=== PATIENT | female | born 1980 | race Two or more races ===

== ENCOUNTER 2019-06-26 00:16 | Inpatient (IN) | payer MEDICAID ==
[~2019-06-26] VITALS: Ht 154.9 cm; Wt 84.8 kg
[2019-06-26] VITALS (15 sets, daily range): BP systolic 92–119; BP diastolic 47–59
[2019-06-26 01:10] LABS: BASOPHIL % 1.7 % (0-2); RED CELL DISTRIBUTION WIDTH 12.1 % (11.5-14.5)
[2019-06-26 01:23] LABS: PLATELET COUNT 301 x10^3mcL (130-400)
[2019-06-26 01:27] LABS: CALCIUM 8.2 mg/dL (8.5-10.1); CARBON DIOXIDE 26.2 mmol/L (21-32); CHLORIDE SERUM 113 mmol/L (98-107); CREATININE SERUM 0.7 mg/dL (0.6-1.0); GFR1 > 60 mL/min; GLUCOSE SERUM 109 mg/dL (74-106); POTASSIUM SERUM 3.7 mmol/L (3.5-5.1); SODIUM SERUM 149 mmol/L (136-145)
[2019-06-26 01:33] LABS: ALBUMIN 3.7 g/dL (3.4-5.0); ALKALINE PHOSPHATASE 72 U/L (46-116); ALT/SGPT 39 U/L (14-59); AMYLASE 86 U/L (25-115); AST/SGOT 21 U/L (15-37); BILIRUBIN TOTAL 0.12 mg/dL (0.20-1.00); LIPASE 168 IU/L (73-393); TOTAL PROTEIN, SERUM 7.3 g/dL (6.4-8.2)
[2019-06-26 07:23] LABS: CHOLESTEROL/HDL RATIO 3.8; T3 TOTAL 1.54 ng/mL
[2019-06-26 07:43] LABS: FREE T4 1.31 ng/dL (0.76-1.46); FREE THYROXINE INDEX 3.6 ug/dL (1.4-4.5); T4(THYROXINE) 9.1 ug/dL (4.7-13.3)
[2019-06-26 08:06] LABS: AMPHETAMINE QUAL UR NONE DETECTED (See below)
[2019-06-26 08:19] LABS: UA SPECIFIC GRAVITY <=1.005 (1.005-1.035); microscopic required? YES; urine erythrocyte TRACE (NEGATIVE)
[2019-06-27] VITALS (16 sets, daily range): BP systolic 96–120; BP diastolic 48–72
[2019-06-27 05:11] LABS: CARBON DIOXIDE 26.8 mmol/L (21-32); CHLORIDE SERUM 108 mmol/L (98-107); CREATININE SERUM 0.6 mg/dL (0.6-1.0); GFR1 > 60 mL/min; GLUCOSE SERUM 95 mg/dL (74-106); MAGNESIUM 1.2 mg/dL (1.8-2.4); PHOSPHOROUS 3.7 mg/dL (2.5-4.9); SODIUM SERUM 144 mmol/L (136-145)
[2019-06-27 05:29] LABS: POTASSIUM SERUM 2.8 mmol/L (3.5-5.1)
[2019-06-27 05:40] LABS: BASOPHIL % 0.5 % (0-2); PLATELET COUNT 221 x10^3mcL (130-400); RED CELL DISTRIBUTION WIDTH 13.2 % (11.5-14.5)
[2019-06-28] VITALS (11 sets, daily range): BP systolic 91–120; BP diastolic 38–64; Ht 154.9 cm; Wt 84.8 kg
[2019-06-28 05:37] LABS: CALCIUM 7.8 mg/dL (8.5-10.1); CARBON DIOXIDE 24.5 mmol/L (21-32); CHLORIDE SERUM 107 mmol/L (98-107); CREATININE SERUM 0.5 mg/dL (0.6-1.0); GFR1 > 60 mL/min; GLUCOSE SERUM 130 mg/dL (74-106); MAGNESIUM 2.3 mg/dL (1.8-2.4); PHOSPHOROUS 2.7 mg/dL (2.5-4.9); POTASSIUM SERUM 3.2 mmol/L (3.5-5.1); SODIUM SERUM 140 mmol/L (136-145)
[2019-06-28 05:42] LABS: BASOPHIL % 0.3 % (0-2); PLATELET COUNT 197 x10^3mcL (130-400); RED CELL DISTRIBUTION WIDTH 12.8 % (11.5-14.5)
[2019-06-29 06:29] VITALS: BP 93/52
[2019-06-29 06:34] LABS: BASOPHIL % 0.1 % (0-2); PLATELET COUNT 235 x10^3mcL (130-400); RED CELL DISTRIBUTION WIDTH 12.8 % (11.5-14.5)
[2019-06-29 06:45] LABS: CALCIUM 7.9 mg/dL (8.5-10.1); CARBON DIOXIDE 25.6 mmol/L (21-32); CHLORIDE SERUM 111 mmol/L (98-107); CREATININE SERUM 0.6 mg/dL (0.6-1.0); GFR1 > 60 mL/min; GLUCOSE SERUM 128 mg/dL (74-106); MAGNESIUM 2.2 mg/dL (1.8-2.4); PHOSPHOROUS 3.5 mg/dL (2.5-4.9); POTASSIUM SERUM 4.2 mmol/L (3.5-5.1); SODIUM SERUM 144 mmol/L (136-145)
[2019-06-29 08:34] VITALS: BP 96/56
[2019-06-29 12:14] VITALS: BP 99/59
[2019-06-29] MEDS ORDERED: AUGMENTIN1 TA1 PO (14:36)
[2019-06-29 14:44] VITALS: BP 99/59
== END 2019-06-29 17:13 | disposition home or self-care (01) | DRG 720 ==
LOC: ED 00:16 → IC 05:54 → DU 06-28 18:55
PROVIDERS: Emergency Medicine; ADMIT Family Medicine
PROC: 5A1945Z Respiratory Ventilation, 24-96 Consecutive Hours (ICD-10-PCS; principal; 2019-06-26)
PROC: 0BH17EZ Insertion of Endotracheal Airway into Trachea, Via Natural or Artificial Opening (ICD-10-PCS; 2019-06-26)
PROC: 05H533Z Insertion of Infusion Device into Right Subclavian Vein, Percutaneous Approach (ICD-10-PCS; 2019-06-26)
DX: A41.9 Sepsis, unspecified organism (principal); J96.00 Acute respiratory failure, unspecified whether with hypoxia or hypercapnia; J69.0 Pneumonitis due to inhalation of food and vomit; R65.21 Severe sepsis with septic shock; E87.0 Hyperosmolality and hypernatremia; E87.8 Other disorders of electrolyte and fluid balance, not elsewhere classified; E83.42 Hypomagnesemia; R55 Syncope and collapse; F10.129 Alcohol abuse with intoxication, unspecified; E87.6 Hypokalemia; E11.9 Type 2 diabetes mellitus without complications; Z68.20 Body mass index [BMI] 20.0-20.9, adult; Y90.8 Blood alcohol level of 240 mg/100 ml or more
CPT/HCPCS: 36600; 84439; 90658; 90732; 94150; 97116-GP; A4628; C9113; G0378; G0480; J1100; J1644; J1885; J2060; J2250; J2405; J2543; J2550; J2765; J2930; J3010; J3475; J3480; J3490; J7030; Q0092